=== PATIENT | male | born 1970 | race Caucasian/White ===

== ENCOUNTER 2019-06-27 07:52 | Day surgery (SDC) | payer OTHER ==
[~2019-06-27] VITALS: Ht 177.8 cm; Wt 83.5 kg
[~2019-06-27 07:52] MED LIST: ALLO10TA PO; LIDOCAINE 2% INJ 100 MG/5 ML SDV (FOR ANES.) As Ordered ONE; LISI-542 PO; NS 1,000 ML IV ONE; OMEP10CASR PO; propofoL 200 MG/20 ML VIAL As Ordered ONE
--- NOTE | 2019-06-27 09:14 | ROOR ---
Patient Name: Gianni Wheatley Procedure Date: 06/27/2019 8:57 AM Date of : 1970 Age: 48 Room: [facility] Gender: Male Note Status: Finalized Procedure: Upper GI endoscopy + Dilatation Indications: Dysphagia, Suspected stricture of the esophagus, Follow-up of esophageal stricture, For therapy of esophageal stricture Providers: Doron Palacio MD Referring MD: Cooper Tapia Do Requesting Provider: Medicines: Monitored Anesthesia Care Complications: No immediate complications. Procedure: Pre-Anesthesia Assessment: - The heart rate, respiratory rate, oxygen saturations, blood pressure, adequacy of pulmonary ventilation, and response to care were monitored throughout the procedure. The Endoscope was introduced through the mouth, and advanced to the second part of duodenum. The upper GI endoscopy was accomplished without difficulty. The patient tolerated the procedure well. Findings: The Z-line was regular and was found 40 cm from the incisors. A non-obstructing Schatzki ring was found at the gastroesophageal junction. A TTS dilator was passed through the scope. Dilation with an 18-19-20 mm balloon dilator was performed to 20 mm. The dilation site was examined and showed moderate improvement in luminal narrowing. A small hiatal hernia was present. No other significant abnormalities were identified in a careful examination of the stomach. The exam of the duodenum was otherwise normal. Impression: - Z-line regular, 40 cm from the incisors. - Non-obstructing Schatzki ring. Dilated. - Small hiatal hernia. - No specimens collected. - The examination was otherwise normal. Recommendation: - Patient has a contact number available for emergencies. The signs and symptoms of potential delayed complications were discussed with the patient. Return to normal activities tomorrow. Written discharge instructions were provided to the patient. - Resume previous diet. - Discharge patient to home. - Follow an antireflux regimen. - Continue present medications. - Repeat upper endoscopy PRN for retreatment. - Return to referring physician. - The findings and recommendations were discussed with the patient's family. Doron Palacio MD Doron Palacio MD 06/27/2019 9:14:01 AM Electronically signed by Doron Palacio MD Number of Addenda: 0 Note Initiated On: 06/27/2019 8:57 AM Estimated Blood Loss: Estimated blood loss: none.
[2019-06-27 09:25] VITALS: BP 128/81
== END 2019-06-27 09:32 | disposition home or self-care (01) ==
LOC: M OPP 07:52
PROVIDERS: ATTEND Internal Medicine Gastroenterology
DX: R13.10 Dysphagia, unspecified (principal); K22.2 Esophageal obstruction; K44.9 Diaphragmatic hernia without obstruction or gangrene; K21.9 Gastro-esophageal reflux disease without esophagitis; I10 Essential (primary) hypertension; M10.9 Gout, unspecified; Z79.899 Other long term (current) drug therapy